=== PATIENT | female | born 1990 | race Caucasian/White ===

== ENCOUNTER 2016-08-31 06:49 | Emergency (ER) | payer BC ==
[~2016-08-31 06:49] MED LIST: ADVAIR 250-501 EACH IH; ALBUTEROL17 G1; ALBUTEROL17 G1 IH; ALBUTEROL17 GM; ALBUTEROL17 GM INH; AMOXICILLIN PO; AMOXICILLIN500 M1 PO; ASPIRIN81 M2 PO; AUGMENTIN875 M1 PO; BENADRYL25 M1 PO; BENZONATATE PO; BIRTH CONTROL PILL; BIRTH CONTROL PILL PO; CLARITIN10 M3 PO; DELTASONE20 MG PO; FLEXERIL10 MG PO; FLOXIN10 ML AU; FOLIC ACID PO; IBUPROFEN PO; IBUPROFEN800 MG PO; INDOCIN PO; IUD; LIDOCAINE HC20 MG/M1 PO; LORTAB 5/500 TA1 TA2 PO; LORTAB ELIXIR15 ML PO; MACROBID100 M1 PO; MEDROL DOSEPAK4 MG PO; METHOTREXATE2.5 MG; METROGEL-VAGINA70 GM VAG; NO MEDICATIONS; NUVARING V1 VAG.RING; PEN-VEE K PO; PEPCID AC20 M2 PO; PEPCID40 MG PO; PHENERGAN25 MG PO; PREDNISONE PO; PREDNISONE50 MG PO; PRENATAL1 TA1 PO; PRILOSEC20 MG PO; PROVENTIL INH0.5 ML INH; ROBITUSSIN A-C S5 ML PO; ROBITUSSIN A-C-S1 ML PO; TAMIFLU75 M1 PO; TESSALON200 MG PO; TOBREX5 ML OU; TYLENOL #3 PO; ZIAGEN300 M1; ZITHROMAX1 G/PKT PO; ZOFRAN ODT4 MG PO; ZOFRAN PO; ZOFRANODT SL; ZOLOFT50 MG PO; [UNRECOGNIZED DRUG - REMARK]
== END 2016-08-31 07:28 | disposition home or self-care (01) ==
LOC: SED 06:49
DX: H01.002 Unspecified blepharitis right lower eyelid (principal)
CPT/HCPCS: 99283

== ENCOUNTER 2016-09-01 23:45 | Emergency (ER) | payer BC | END 2016-09-02 01:20 | disposition home or self-care (01) | LOC: CED 23:45 | DX: H01.8 Other specified inflammations of eyelid (principal); J45.909 Unspecified asthma, uncomplicated; G43.909 Migraine, unspecified, not intractable, without status migrainosus | CPT/HCPCS: 99282 ==